=== PATIENT | female | born 1965 | race Caucasian/White ===

== ENCOUNTER 2017-03-16 18:43 | Emergency (ER) | payer OTHER ==
[~2017-03-16] VITALS: Ht 162.6 cm; Wt 90.9 kg
[~2017-03-16 18:43] MED LIST: CLONAZEPAM1 M1 PO; CYCL5TAB PO; GABA-502 PO; LOSA25TA21 PO; PRAM0.5T PO; PRI20 PO
[2017-03-16 18:47] VITALS: BP 178/114; PULSE 96; RESP 16; O2SAT 100
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
[2017-03-17 00:16] VITALS: BP 176/112; PULSE 82; RESP 16; O2SAT 97
== END 2017-03-17 00:17 | disposition home or self-care (01) ==
LOC: SED 18:43
DX: F43.0 Acute stress reaction (principal); T76.21XA Adult sexual abuse, suspected, initial encounter; F41.9 Anxiety disorder, unspecified; J45.909 Unspecified asthma, uncomplicated; I10 Essential (primary) hypertension; F32.9 Major depressive disorder, single episode, unspecified; F31.9 Bipolar disorder, unspecified; Z88.5 Allergy status to narcotic agent; Z88.8 Allergy status to other drugs, medicaments and biological substances